=== PATIENT | female | born 1995 | race American Indian/Alaskan Native ===

== ENCOUNTER 2017-03-19 21:47 | Inpatient (IN) | payer MEDICAID ==
[2017-03-20] MEDS ORDERED: BRETHINE SUB-Q PRN (00:45)
[2017-03-20] MEDS ORDERED: POLYCILLIN/NS 2 GM/100 ML 2 GM/100 ML BAG IV ONE (00:45)
[2017-03-20] MEDS ORDERED: STADOL IV PRN (00:45)
[2017-03-20] MEDS ORDERED: BRETHINE IVP PRN (00:45)
[2017-03-20] MEDS ORDERED: SUBLIMAZE IV PRN (00:45)
[2017-03-20] MEDS ORDERED: MINERAL OIL PO PRN (00:45)
[2017-03-20] MEDS ORDERED: XYLOCAINE 2% INFILTRATI ONE (00:45)
[2017-03-20] MEDS ORDERED: ZOFRAN IV PRN ×2 (00:45→09:07)
[2017-03-20] MEDS ORDERED: ePHEDrine SULFATE IV PRN (00:45)
[2017-03-20] MEDS ORDERED: PITOCin/NS 30 UNIT/500ML 30 UNITS/500 ML BAG IV SCH ×2 (01:00)
[2017-03-20] MEDS ORDERED: PITOCin/NS 20 UNIT/1000ML DRIP 20 UNITS/1,000 ML BAG IV SCH (01:00)
[2017-03-20] MEDS ORDERED: LACTATED RINGERS 1,000 ML IV SCH (01:00)
--- NOTE | 2017-03-20 01:04 | History and Physical Report ---
History of Present Illness Date of examination: 03/19/17 Date of admission: 03/19/17 23:38 Chief complaint: I'm in labor History of present illness: Patient is a 21 year old who presents as a walk in at 36 weeks with complaint of contractions. Patient sees Dr. Monroe for care and was supposed to go to [facility] [place]. records are not available for review but patient states that she is followed by [facility] for polyhydramnios but she denies gestational diabetes. Past History Past Medical History: no pertinent history Past Surgical History: no surgical history Social history: - Obstetrical History Expected Date of Delivery: 04/15/17 Actual Gestation: 36 Week(s) 2 Day(s) : 2 Para: 1 Number of Living Children: 1 Medications and Allergies Allergies Allergy/AdvReac Type Severity Reaction Status Date / Time No Known Allergies Allergy Verified 03/20/17 00:51 Active Meds: Active Medications Butorphanol Tartrate (Stadol) 2 mg IV Q2H PRN PRN Reason: Pain , Severe (7-10) Ephedrine Sulfate (Ephedrine Sulfate) 10 mg IV Q2M PRN PRN Reason: Hypotension Fentanyl (Sublimaze) 100 mcg IV Q2H PRN PRN Reason: Labor Pain Ampicillin Sodium (Polycillin/Ns 2 Gm/100 Ml) 2 gm in 100 mls @ 100 mls/hr IV ONCE ONE PRN Reason: Protocol Stop: 03/20/17 01:44 Ampicillin Sodium (Polycillin/Ns 1 Gm/50 Ml) 1 gm in 50 mls @ 100 mls/hr IV Q4H FRANCISCO PRN Reason: Protocol Lactated Ringer's (Lactated Ringers) 1,000 mls @ 125 mls/hr IV DIRECT FRANCISCO Oxytocin/Sodium Chloride (Pitocin/Ns 20 Unit/1000ml Drip) 20 units in 1,000 mls @ 125 mls/hr IV DIRECT FRANCISCO Oxytocin/Sodium Chloride (Pitocin/Ns 30 Unit/500ml) 30 units in 500 mls @ 1 mls /hr IV TITR FRANCISCO; 1 MILLIUNITS/MIN PRN Reason: Protocol Oxytocin/Sodium Chloride (Pitocin/Ns 30 Unit/500ml) 30 units in 500 mls @ 4 mls /hr IV TITR FRANCISCO PRN Reason: Protocol Mineral Oil (Mineral Oil) 30 ml PO QHS PRN PRN Reason: Constipation Ondansetron HCl (Zofran) 4 mg IV Q8H PRN PRN Reason: Nausea And Vomiting Terbutaline Sulfate (Brethine) 0.25 mg SUB-Q ONCE PRN PRN Reason: Hyperstimulation/Hypertonicity Terbutaline Sulfate (Brethine) 0.25 mg IVP ONCE PRN PRN Reason: Hyperstimulation/Hypertonicity Review of Systems All systems: negative Genitourinary: contractions - Vital Signs Vital signs: Vital Signs Temp Resp 99.2 F 18 03/19/17 22:33 03/19/17 22:33 Temp Pulse Resp BP Pulse Ox 99.2 F 84 18 133/79 03/19/17 22:33 03/20/17 00:06 03/19/17 22:33 03/20/17 00:06 - Physical Exam Breasts: Positive: deferred Cardiovascular: Regular rate, Normal S1 Lungs: Positive: Clear to auscultation, Normal air movement Abdomen: Positive: normal appearance, soft, normal bowel sounds Genitourinary (Female): Positive: normal external genitalia, normal perenium Vagina: Positive: normal moisture Uterus: Positive: normal size Extremities: Positive: normal - Obstetrical Cervical Dilatation: 5 Cervical Effacement Percentage: 80 station: -2 Results Result Diagrams: 03/20/17 01:39 All other labs normal. Assessment and Plan IUP at 36 weeks with cervical dilation and contractions. Ultrasound confims cephalic presentation but head not well applied. will start pitocin to bring head down then AROM when able. Treat for unknown GBS status. Anticipate
[2017-03-20 01:57] LABS: Hematocrit 32.5 % (30.3-42.9); Hemoglobin 10.7 gm/dl (10.1-14.3); Mean Corpuscular HGB Conc 33 % (30-34); Mean Corpuscular Volume 73 fl (79-97); Platelet Count 244 K/mm3 (140-440); Red Blood Count 4.43 M/mm3 (3.65-5.03); White Blood Count 11.6 K/mm3 (4.5-11.0)
[2017-03-20 02:00] LABS: Mean Corpuscular Hemoglobin 24 pg (28-32)
[2017-03-20] MEDS ORDERED: POLYCILLIN/NS 1 GM/50 ML 1 GM/50 ML BAG IV SCH (05:00)
[2017-03-20 06:53] LABS: Urine Drugs of Abuse Note Disclamer
--- NOTE | 2017-03-20 07:16 | Procedure Note ---
OB Delivery Note - Delivery Date of Delivery: 03/20/17 Surgeon: MAIDA WHITE Estimated blood loss: 200cc - Vaginal Delivery presentation: vertex Delivery position: OA Intrapartum events: none Delivery augmentation: rupture of membranes, pitocin Delivery monitor: external FHT, external uterine Route of delivery: Delivery placenta: spontaneous Delivery cord: 3 umbilical vessels Episiotomy: none Delivery laceration: none Anesthesia: none Delivery comments: Viable female delivered over intact perineum with spontaneous cry and placed on maternal abdomen. Cord clamped and cut when done pulsating. Placenta delivered spontaneously and intact with 3vc. small periurethral laceration was hemostatic. Excellent hemostasis. Patient tolerated procedure well. - A at 1 minute: 9 at 5 minutes: 9 Infant Gender: Female (7 pounds 3 ounces)
[2017-03-20] MEDS ORDERED: MOTRIN PO ONE ×2 (07:41→07:43)
[2017-03-20 09:06] LABS: HIV-1 Antigen p24 Non React (Non React); HIVR-1/2 Ab Non React (Non React)
[2017-03-20] MEDS ORDERED: BENADRYL PO PRN (09:07)
[2017-03-20] MEDS ORDERED: MILK OF MAGNESIA PO PRN (09:07)
[2017-03-20] MEDS ORDERED: SODIUM CHLORIDE FLUSH SYRINGE 10 ML IV NR (09:07)
[2017-03-20] MEDS ORDERED: TYLENOL PO PRN (09:07)
[2017-03-20] MEDS ORDERED: PHENERGAN PO PRN (09:07)
[2017-03-20] MEDS ORDERED: DULCOLAX PR PRN (09:07)
[2017-03-20] MEDS ORDERED: TUCKS PAD TP PRN (09:07)
[2017-03-20] MEDS: NORCO 5/325 PO PRN (09:45)
[2017-03-20 21:19] LABS: Hematocrit 34.3 % (30.3-42.9); Hemoglobin 11.1 gm/dl (10.1-14.3)
[2017-03-20] MEDS: COLACE PO SCH (21:36)
[2017-03-20] MEDS: MOTRIN PO SCH (21:37)
[2017-03-21] MEDS: MOTRIN PO SCH ×4 (03:00→21:48)
[2017-03-21] MEDS ORDERED: BOOSTRIX IM ONE (07:16)
[2017-03-21] MEDS: COLACE PO SCH ×2 (09:03→21:48)
[2017-03-21] MEDS: NORCO 5/325 PO PRN (21:49)
[2017-03-22] MEDS: MOTRIN PO SCH (05:42)
--- NOTE | 2017-03-22 08:18 | Progress Note ---
Assessment and Plan - Patient Problems (1) Active labor at term Current Visit: Yes Status: Acute Plan to address problem: discharge home Subjective - Subjective Date of service: 03/22/17 Interval history: Patient without complaints. Bonding with infant. Pain well controlled Patient reports: appetite normal, voiding normally, pain well controlled [place]: doing well Objective - Vital Signs Latest vital signs: Vital Signs Temp Pulse Resp BP BP Pulse Ox 03/21/17 21:59 98.6 F 67 16 130/88 100 03/21/17 16:44 98.8 F 61 20 116/69 100 Intake and Output 03/21/17 03/22/17 03/22/17 22:59 06:59 14:59 Intake Total 360 580 Balance 360 580 Intake: Oral 360 580 Other: Total, Intake Amount 360 580 # Voids Void 1 2 # Bowel Movements 0 - Exam Breasts: Present: deferred Cardiovascular: Present: Regular rate Uterus: Present: normal, firm
--- NOTE | 2017-03-22 08:19 | Discharge Summary ---
Providers - Providers Date of Admission: 03/19/17 23:38 Date of discharge: 03/22/17 Attending physician: MAIDA WHITE Primary care physician: MAIDA WHITE Hospitalization Reason for admission: active labor Delivery: Discharge diagnosis: IUP at term delivered [place] baby: female Hospital course: Patient admitted in active labor. Had a . uncomplicated Condition at discharge: Good Disposition: DC-01 TO HOME OR SELFCARE - Discharge Diagnoses (1) Active labor at term Status: Acute Plan - Discharge Medications Prescriptions: HYDROcodone/APAP 5-325 [[place] 5/325] 1 each PO Q6HR PRN #30 tablet PRN Reason: Pain Ibuprofen [Motrin] 800 mg PO Q8HR PRN #40 tablet PRN Reason: Pain - Provider Discharge Summary Activity: no sex for 6 weeks, no heavy lifting 4 weeks, no strenuous exercise Diet: routine Instructions: routine Additional instructions: [] Smoking cessation referral if applicable(refer to patient education folder for contact #) [] Refer to [facility] Booklet Call your doctor immediately for: * Fever > 100.5 * Heavy vaginal bleeding ( >1 pad per hour) * Severe persistent headache * Shortness of breath * Reddened, hot, painful area to leg or breast * schedule visit in 4 weeks - Follow up plan
[2017-03-22 09:01] VITALS: BP 123/79
[2017-03-22] MEDS ORDERED: MOTRIN PO SCH (12:00)
== END 2017-03-22 11:30 | disposition home or self-care (01) | DRG 775 ==
LOC: TRG 21:47 → LD 23:38 → TRG 23:38 → OB 03-20 08:55
PROVIDERS: ADMIT Obstetrics & Gynecology; ATTEND Obstetrics & Gynecology
PROC: 10E0XZZ Delivery of Products of Conception, External Approach (ICD-10-PCS; principal; 2017-03-20)
PROC: 10907ZC Drainage of Amniotic Fluid, Therapeutic from Products of Conception, Via Natural or Artificial Opening (ICD-10-PCS; 2017-03-20)
PROC: 3E0234Z Introduction of Serum, Toxoid and Vaccine into Muscle, Percutaneous Approach (ICD-10-PCS; 2017-03-21)
DX: O71.82 Other specified trauma to perineum and vulva (principal); Z3A.36 36 weeks gestation of pregnancy; Z37.0 Single live birth; Z23 Encounter for immunization
CPT/HCPCS: 36415; 80307; 85014; 85018; 85027; 86592; 86706; 86762; 86850; 86900; 86901; 87806; 88307; 90715; J0290; J2590; J3010; J7120

== ENCOUNTER 2017-07-18 18:33 | Emergency (ER) | payer MEDICAID ==
[2017-07-18 19:05] VITALS: BP 146/93
== END 2017-07-18 21:00 | disposition left against medical advice (07) ==
LOC: ED 18:33
DX: Z53.21 Procedure and treatment not carried out due to patient leaving prior to being seen by health care provider (principal)

== ENCOUNTER 2017-07-20 17:53 | Emergency (ER) | payer OTHER, MEDICAID ==
[2017-07-20 18:09] VITALS: BP 127/80
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
== END 2017-07-20 20:28 | disposition home or self-care (01) ==
LOC: ED 17:53
DX: M79.652 Pain in left thigh (principal)
CPT/HCPCS: 99282

== ENCOUNTER 2017-11-24 12:18 | Emergency (ER) | payer MEDICAID, OTHER ==
[2017-11-24 12:29] VITALS: BP 134/75
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
== END 2017-11-24 12:51 | disposition home or self-care (01) ==
LOC: ED 12:18
DX: H60.502 Unspecified acute noninfective otitis externa, left ear (principal); H66.92 Otitis media, unspecified, left ear; J45.909 Unspecified asthma, uncomplicated
CPT/HCPCS: 99282

== ENCOUNTER 2018-01-20 09:24 | Emergency (ER) | payer MEDICAID ==
[2018-01-20] MEDS ORDERED: MOTRIN PO ONE (10:12)
--- NOTE | 2018-01-20 10:18 | XRay Report ---
RIGHT FOOT, 3 views: History: Pain. The bony architecture is intact. Bony alignment is normal. No soft tissue abnormalities are seen. The joint spaces appear preserved. IMPRESSION: Unremarkable right foot.
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
[2018-01-20 11:09] VITALS: BP 112/74
== END 2018-01-20 10:56 | disposition home or self-care (01) ==
LOC: ED 09:24
DX: S96.911A Strain of unspecified muscle and tendon at ankle and foot level, right foot, initial encounter (principal); J45.909 Unspecified asthma, uncomplicated; X58.XXXA Exposure to other specified factors, initial encounter; Y93.89 Activity, other specified; Y92.89 Other specified places as the place of occurrence of the external cause; Y99.8 Other external cause status
CPT/HCPCS: 99284

== ENCOUNTER 2018-10-18 17:03 | Emergency (ER) | payer MEDICAID, OTHER ==
--- NOTE | 2018-10-18 17:30 | Emergency Department Report ---
Blank Doc - Documentation Documentation: 23 Y O FEMALE PRESENTS WITH ABSCESS TO ARMPIT NO drainage, ACC
[2018-10-18] MEDS ORDERED: TYLENOL PO ONE (20:11)
[2018-10-18] MEDS ORDERED: XYLOCAINE 2% INFILTRATI ONE ×2 (20:11→20:14)
[2018-10-18] MEDS ORDERED: IBUPROFEN PO ONE (20:11)
[2018-10-18] MEDS ORDERED: TYLENOL ONE (20:14)
[2018-10-18] MEDS ORDERED: IBUPROFEN ONE (20:15)
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
[2018-10-18 21:04] VITALS: BP 132/88
== END 2018-10-18 21:04 | disposition home or self-care (01) ==
LOC: ED 17:03
DX: L02.411 Cutaneous abscess of right axilla (principal); J45.909 Unspecified asthma, uncomplicated; Z79.1 Long term (current) use of non-steroidal anti-inflammatories (NSAID); Z79.899 Other long term (current) drug therapy